=== PATIENT | male | born 1995 | race Two or more races ===

== ENCOUNTER 2017-04-04 00:49 | Emergency (ER) | payer OTHER ==
[2017-04-04 01:01] VITALS: BP 123/74; PULSE 80; TEMP 98.3; BMI 24.0
[2017-04-04] MEDS ORDERED: KETOROLAC TROMETHAMINE 60 MG/2 ML VIAL IM ONE (02:19)
[2017-04-04] MEDS ORDERED: KETOROLAC TROMETHAMINE 60 MG/2 ML VIAL ONE (02:25)
--- NOTE | 2017-04-04 03:21 | PDOC ---
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 PAST MEDICAL HISTORY: Denies past medical history FAMILY HISTORY: Denies SOCIAL HISTORY: Smoker 10 cigs daily denies alcohol, illicit drug use. SURGICAL HISTORY: Denies ALLERGIES: No known drug allergies REVIEW OF SYSTEMS General/Constitutional: Denies fever or chills. Denies weakness, weight change. HEENT: Denies change in vision. Denies ear pain or discharge. Denies sore throat. Cardiovascular: Denies chest pain or shortness of breath. Respiratory: Denies cough, wheezing, or hemoptysis. Gastrointestinal: Denies nausea, vomiting, diarrhea or constipation. Denies rectal bleeding. Genitourinary: Denies dysuria, frequency, or change in urination. Musculoskeletal: neck pain since this afternoon. Denies joint or muscle swelling or pain. Skin and breasts: Denies rash or easy bruising. PHYSICAL EXAM General Appearance: Well-appearing, appropriately dressed. No apparent distress , no intoxication. HEENT: EOMI, PERRLA, normal ENT inspection, normal voice, TMs normal, pharynx normal. No conjunctival pallor. No photophobia, scleral icterus. Neck: Supple. Trachea midline. No tenderness, rigidity, carotid bruit, stridor , lymphadenopathy, or thyromegaly. Respiratory/Chest: Lungs CTAB. No shortness of breath, chest tenderness, respiratory distress, accessory muscle use. No crackles, rales, rhonchi, stridor , wheezing, dullness Cardiovascular: RRR. S1, S2. No JVD, murmur, bradycardia, tachycardia. Vascular Pulses: Dorsalis-Pedis (R): 2+, Dorsalis-Pedis (L): 2+ Gastrointestinal/Abdominal: Normal bowel sounds. Abdomen soft, non-distended. No tenderness or rebound tenderness. No organomegaly, pulsatile mass, guarding , hernia, hepatomegaly, splenomegaly. Lymphatic: No adenopathy, tenderness. Musculoskeletal/Extremities: reproducible neck pain. Normal inspection. FROM of all extremities, normal capillary refill. Pelvis Stable. No CVA tenderness. No tenderness to extremities, pedal edema, swelling, erythema or deformity. Integumentary: Appropriate color, dry, warm. 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 Fully oriented, alert. Appropriate mood/affect. Motor strength 5/5. No appreciable EOM palsy, facial droop or sensory deficit. Past History - Past Medical History Allergies/Adverse Reactions: Allergies Allergy/AdvReac Type Severity Reaction Status Date / Time No Known Allergies Allergy Verified 04/04/17 00:54 Home Medications: Ambulatory Orders Cyclobenzaprine HCl [Flexeril 10 mg] 10 mg PO HS PRN #7 tablet 04/04/17 Naproxen 250 mg PO BID #14 tablet 04/04/17 Other medical history: denies - Psycho/Social/Smoking Cessation Hx Suicidal Ideation: No Smoking History: Current every day smoker Number of Cigarettes Smoked Daily: 10 Information on smoking cessation initiated: No *Physical Exam - Vital Signs Last Vital Signs Temp Pulse Resp BP Pulse Ox 98.3 F 80 18 123/74 98 04/04/17 00:51 04/04/17 00:51 04/04/17 00:51 04/04/17 00:51 04/04/17 00:51 ED Treatment Course - Medications Given in the ED: ED Medications Discontinued Medications Generic Name Dose Route Start Last Admin Trade Name Freq PRN Reason Stop Dose Admin Ketorolac Tromethamine 60 mg 04/04/17 02:19 04/04/17 02:30 Toradol Injection - IM 04/04/17 02:20 60 mg ONCE ONE Administration Medical Decision Making - Medical Decision Making 04/04/17 03:15 60 mg toradol im patient requesting to go home, states he is feeling better *DC/Admit/Observation/Transfer Diagnosis at time of Disposition: Torticollis - Discharge Dispostion Disposition: HOME Condition at time of disposition: Stable Admit: No - Prescriptions Prescriptions: Cyclobenzaprine HCl [Flexeril 10 mg] 10 mg PO HS PRN #7 tablet PRN Reason: Pain Naproxen 250 mg PO BID #14 tablet - Referrals Referrals: Nikki Ocampo [Primary Care Provider] - Froylan Pittman MD [Staff Physician] - - Patient Instructions Printed Discharge Instructions: DI for Torticollis Additional Instructions: Please take medication as prescribed. Do NOT drive or operate machinery while taking cyclobenzaprine. If your symptoms do not improve in 5-7 days, please follow up with an orthopedics for further evaluation and a possible MRI or physical therapy. If you experience any sudden headache, change in vision, fever, vomiting, diarrhea, loss of sensation to your extremities, any loss of bowel or bladder function, any swelling or increased pain to your leg, please return to the ER.
== END 2017-04-04 03:25 | disposition home or self-care (01) ==
LOC: JER 00:49
PROC: 3E0233Z Introduction of Anti-inflammatory into Muscle, Percutaneous Approach (ICD-10-PCS; principal; 2017-04-04)
DX: M43.6 Torticollis (principal)
CPT/HCPCS: 96372; 99281-25

== ENCOUNTER 2017-06-01 21:48 | Emergency (ER) | payer OTHER ==
[2017-06-01 22:04] VITALS: BP 136/88; PULSE 79; TEMP 98.3; BMI 24.4
--- NOTE | 2017-06-01 22:21 | PDOC ---
History of Present Illness - General Chief Complaint: Pain Stated Complaint: PAIN Time Seen by Provider: 06/01/17 22:15 History Source: Patient Exam Limitations: No Limitations - History of Present Illness Initial Comments: 06/01/17 22:21 Patient here with complaints of left toenail pain. States suffers from ingrown toenails, expressed some purulent drainage from the side 2-3 days ago but has remained painful. States suffers from same on the right side. 06/01/17 22:59 Occurred: reports: just prior to arrival Severity: reports: mild Associated Symptoms (Fall): denies symptoms Past History - Travel Traveled outside of the country in the last 30 days: No Close contact w/someone who was outside of country & ill: No - Past Medical History Allergies/Adverse Reactions: Allergies Allergy/AdvReac Type Severity Reaction Status Date / Time No Known Allergies Allergy Verified 04/04/17 00:54 Home Medications: Ambulatory Orders Amox-Tr/K Cl [Augmentin 875Mg Tablet] 1 tab PO BID #20 tablet 06/01/17 - Psycho/Social/Smoking Cessation Hx Suicidal Ideation: No Smoking History: Current every day smoker Have you smoked in the past 12 months: No Number of Cigarettes Smoked Daily: 10 Information on smoking cessation initiated: No Hx Alcohol Use: No Drug/Substance Use Hx: No Review of Systems - Review of Systems Able to Perform ROS?: Yes Is the patient limited Cambodian proficient: Yes Constitutional: Yes: See HPI. No: Symptoms Reported, Fever Musculoskeletal: Yes: Symptoms Reported, See HPI Integumentary: Yes: Symptoms Reported, See HPI, Erythema (no swelling or fluctuance ) All Other Systems: Reviewed and Negative *Physical Exam - Vital Signs Last Vital Signs Temp Pulse Resp BP Pulse Ox 98.3 F 79 18 136/88 100 06/01/17 22:02 06/01/17 22:02 06/01/17 22:02 06/01/17 22:02 06/01/17 22:02 - Physical Exam General Appearance: Yes: Appropriately Dressed, Apparent Distress HEENT: positive: ANUJ, Normal ENT Inspection, TMs Normal, Pharynx Normal Neck: positive: Supple. 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 intact, Fully Oriented, Alert, Normal Mood/ Affect, Normal Response, Motor Strength 01/29 Progress Note - Progress Note Progress Note: Ingrown toenails, will refer to [facility] and started on Augmentin *DC/Admit/Observation/Transfer Diagnosis at time of Disposition: Ingrown toenail without infection - Discharge Dispostion Disposition: HOME Condition at time of disposition: Stable Admit: No - Prescriptions Prescriptions: Amox-Tr/K Cl [Augmentin 875Mg Tablet] 1 tab PO BID #20 tablet - Referrals Referrals: Nikki Ocampo [Primary Care Provider] - Zachary Cesar MD [Staff Physician] - - Patient Instructions Printed Discharge Instructions: DI for Ingrown Toenail Additional Instructions: Rest, keep hand elevated Avoid heavy lifting or strenuous activity until healed Soak finger every 2-3 hours while awake for the next 2-3 days to keep continue to allow drainage Reapply bacitracin ointment and bulky dressing after each soaking May use ibuprofen or Tylenol for pain relief Followup with private physician in one to 2 days for wound check as needed Return immediately to emergency department or private doctor's for worsening redness, swelling, pain, streaking Take all of antibiotics until completed - Post Discharge Activity Work/School Note: Back to Work
[2017-06-01] MEDS ORDERED: AMOX TR/POT CLAV 875MG/125MG TABLETS (FP) PO ONE (22:23)
[2017-06-01] MEDS ORDERED: AMOX TR/POT CLAV 875MG/125MG TABLETS (FP) ONE ×2 (22:26)
== END 2017-06-01 22:29 | disposition home or self-care (01) ==
LOC: JERFT 21:48
DX: L60.0 Ingrowing nail (principal); F17.210 Nicotine dependence, cigarettes, uncomplicated
CPT/HCPCS: 99281-25